=== PATIENT | male | born 1950 | race Caucasian/White ===

== ENCOUNTER → 2022-05-29 17:53 | Outpatient (BNVA) | payer MEDICARE, SELFPAY | PROVIDERS: Visit Provider Emergency Medicine | DX: R30.0 Dysuria (principal); R10.9 Unspecified abdominal pain; R35.0 Frequency of micturition; R97.20 Elevated prostate specific antigen [PSA] | CPT/HCPCS: 80053; 81000; 82378; 85025; 86304; 87086; G0103 ==